=== PATIENT | female | born 1965 | race Caucasian/White ===

== ENCOUNTER 2020-01-27 21:22 | Emergency (ER) | payer MEDICARE, MEDICAID ==
[~2020-01-27] VITALS: Ht 162.6 cm; Wt 67.0 kg
[2020-01-27 21:44] VITALS: BP 147/82
[2020-01-27 22:24] LABS: CALCIUM 9.2 mg/dL (8.5-10.1); CREATININE 0.8 mg/dL (0.6-1.0); GFR 75.3; POTASSIUM 3.2 mmol/L (3.5-5.1)
[2020-01-27] MEDS ORDERED: METOCLOPRAMIDE HCL 10 MG/2 ML VIAL. ONE (22:29)
--- NOTE | 2020-01-27 22:59 | ED.ADGEN ---
Past Medical History Past Medical History: Anxiety, Depression, Diabetes-Type II, Fibromyalgia, Other Additional Past Medical Histor: DJD, chronic pain, PCOS, drug abuse (methamphetamine) Past Surgical History: Cervical Fusion, Tubal ligation, Other Additional Past Surgical Histo: uterine ablation, L lumpectomy Smoking Status: Current Every Day Smoker Additional Information: 0.5ppd Alcohol Use: Rarely Social History Narrative: Pt denies recent drug use. General Adult EDM: Chief Complaint: HYPOGLYCEMIA HPI: HPI: Patient is 54-year-old female presents to the emergency room after having episode of hypoglycemia. Patient is on insulin for diabetes. She is not exactly sure what happened but believes that she got insulin and then did not eat. She was found unconscious and had a glucose of 20. She was given glucagon which improved her mental status and her glucose. Patient has no complaints at this time. She states she wants to eat. Review of Systems: Review of Systems: Complete ROS is negative unless otherwise documented in HPI Current Medications: Current Medications Medications (Trade) Dose Ordered Sig/Kristian Start Time Stop Time Status Last Admin Dose Admin Metoclopramide HCl (Reglan Vial) 10 mg STK-MED ONCE 01/27/20 22:29 01/27/20 22:29 DC Allergies: Allergies: Allergies Coded Allergies Type Severity Reaction Last Updated Verified duloxetine Allergy Severe shortness of breath 01/27/20 Yes codeine Allergy Intermediate n/v 01/27/20 Yes Physical Exam: PE: General: Awake, alert, NAD. Well Nourished, well hydrated. Cooperative HEENT: Atraumatic, EOMI, PERRL, airway patent, moist oral mucosa Neck: Supple, trachea midline Respiratory: CTA bilaterally, normal effort, no wheezing/crackles CV: RRR, no murmur, cap refill <2 GI: Soft, nondistended, nontender, no masses MSK: No obvious deformities Skin: Warm, dry, intact Neuro: A&O x3, speech NL, sensory and motor grossly intact, no focal deficits Psych: Normal affect, normal mood, not suicidal or homicidal Current Patient Data: Labs: Laboratory Tests Test 01/27/20 21:27 01/27/20 22:05 01/27/20 22:54 Glucose (Fingerstick) 90 mg/dL (70-99) 258 mg/dL (70-99) H Sodium Level 140 mmol/L (136-145) Potassium Level 3.2 mmol/L (3.5-5.1) L Chloride Level 103 mmol/L (98-107) Carbon Dioxide Level 29 mmol/L (21-32) Anion Gap 8 (6-14) Blood Urea Nitrogen 22 mg/dL (7-20) H Creatinine 0.8 mg/dL (0.6-1.0) Estimated GFR (Cockcroft-Gault) 75.3 Glucose Level 118 mg/dL (70-99) H Calcium Level 9.2 mg/dL (8.5-10.1) Laboratory Tests 01/27/20 22:05 Vital Signs: Vital Signs Date Time Temp Pulse Resp B/P (MAP) Pulse Ox O2 Delivery O2 Flow Rate FiO2 01/27/20 21:44 98.4 147/82 (103) 100 Room Air 98.4 EKG: EKG: [] Heart Score: Risk Factors: Risk Factors: DM, Current or recent (<one month) smoker, HTN, HLP, family h istory of CAD, obesity. Risk Scores: Score 0 - 3: 2.5% MACE over next 6 weeks - Discharge Home Score 4 - 6: 20.3% MACE over next 6 weeks - Admit for Clinical Observation Score 7 - 10: 72.7% MACE over next 6 weeks - Early Invasive Strategies Radiology/Procedures: Radiology/Procedures: [] Course & Med Decision Making: Course & Med Decision Making Pertinent Labs and Imaging studies reviewed. (See chart for details) Patient is 54-year-old female who presents to the emergency room after an episode of hypoglycemia. Patient has glucose of 90 upon arrival. She was given food and glucose was rechecked and was normal. Patient would like to go home. Patient's test results and vitals while in the ED were fully reviewed and discussed with the patient. Patient is stable and at this time does not need admission to the hospital. We have discussed strict return precautions and the importance of following up with their Primary Care Physician. Patient stated understanding and was given an opportunity to ask any questions. Patient is in agreement with plan. Dragon Disclaimer: Dragon Disclaimer: This electronic medical record was generated, in whole or in part, using a voice recognition dictation system. Departure Departure Impression: Primary Impression: Hypoglycemia Disposition: 01 DC HOME SELF CARE/HOMELESS Condition: STABLE Referrals: TEZ SAN MD (PCP) Patient Instructions: Hypoglycemia (Low Blood Sugar) JOHN VICTOR MD Jan 27, 2020 22:59
== END 2020-01-27 23:45 | disposition home or self-care (01) ==
LOC: ER 21:22
DX: E11.649 Type 2 diabetes mellitus with hypoglycemia without coma (principal); F41.9 Anxiety disorder, unspecified; F32.9 Major depressive disorder, single episode, unspecified; M79.7 Fibromyalgia; G89.29 Other chronic pain; F17.200 Nicotine dependence, unspecified, uncomplicated; Z98.51 Tubal ligation status; Z90.89 Acquired absence of other organs; Z98.890 Other specified postprocedural states; Z88.5 Allergy status to narcotic agent; Z88.8 Allergy status to other drugs, medicaments and biological substances
CPT/HCPCS: 36415; 80048; 82962; 99283